=== PATIENT | female | born 1965 | race American Indian/Alaskan Native ===

== ENCOUNTER 2019-02-14 08:24 | Outpatient (CLI) | payer BC ==
--- NOTE | 2019-02-14 15:14 | Mammography Report ---
BILATERAL DIGITAL SCREENING MAMMOGRAM with CAD: 02/14/19 08:24:00 CLINICAL: Routine screening. COMPARISON:05/02/11 FINDINGS: The breasts are heterogeneously dense, which may obscure small masses. No mass, architectural distortion or suspicious calcifications. The previously described enlarged right axillary lymph node has resolved. An irregular right axillary skin lesion has also either resolved or is not included on this mammogram. IMPRESSION: No mammographic evidence of malignancy. BI-RADS CATEGORY: 1 - - Negative RECOMMENDATION: Routine mammographic screening in one year. COMMENT: Patient follow-up letters are generated by our [email or web address] application.
== END 2019-02-14 08:25 | disposition home or self-care (01) ==
LOC: SPVWC 08:24
PROVIDERS: ATTEND Nurse Practitioner Family
DX: Z12.31 Encounter for screening mammogram for malignant neoplasm of breast (principal)
CPT/HCPCS: 77067

== ENCOUNTER 2021-05-25 09:06 | Outpatient (CLI) | payer BC ==
--- NOTE | 2021-05-25 13:09 | Mammography Report ---
DIGITAL SCREENING MAMMOGRAM WITH CAD, 05/25/2021 CLINICAL INFORMATION / INDICATION: Routine screening mammography. SCREENING MAMMO TECHNIQUE: Digital bilateral 2D mammography was obtained in the craniocaudal and mediolateral obliqu e projections. This examination was interpreted with the benefit of Computer-Aided Detection analysis . COMPARISON: 02/14/19. FINDINGS: Breast Density: There are scattered areas of fibroglandular density. No dominant mass, suspicious calcifications, or architectural distortion in either breast. IMPRESSION: No mammographic evidence of malignancy. Follow up recommendation: Routine yearly BI-RADS Category 1: Negative. A "normal" or negative report should not discourage follow up or biopsy of a clinically significant f inding. A written summary of these findings will be mailed to the patient. The patient will be entered into a mammography reporting system which will generate a reminder letter for the patient's next appointmen t at the appropriate interval. The [employer] recommends yearly mammograms starting at age 40 and continuing as l mati as a woman is in good health. Breast MRI is recommended for women with an approximate 20-25% or greater lifetime risk of breast cancer, including women with a strong family history of breast or ova christiano cancer or who have been treated for Hodgkin's disease. Signer Name: David Jauregui MD Signed: 05/25/2021 1:04 PM Workstation Name: [id number]
== END 2021-05-25 09:07 | disposition home or self-care (01) ==
LOC: SPVWC 09:06
PROVIDERS: ATTEND Nurse Practitioner Family
DX: Z12.31 Encounter for screening mammogram for malignant neoplasm of breast (principal)
CPT/HCPCS: 77067

== ENCOUNTER 2022-06-27 12:11 | Outpatient (CLI) | payer BC ==
[2022-06-27 13:28] LABS: Calcium 9.2 mg/dL (8.4-10.2)
[2022-06-27 13:30] LABS: Hemoglobin 13.6 gm/dl (10.1-14.3); Mean Corpuscular HGB Conc 35 % (30-34); Mean Corpuscular Volume 96 fl (79-97); Platelet Count 227 K/mm3 (140-440); Red Blood Count 4.08 M/mm3 (3.65-5.03); Red Cell Distribution Width 14.9 % (13.2-15.2)
[2022-06-27 13:39] LABS: Mucus,Urine FEW /HPF
[2022-06-27 13:42] LABS: Color,Urine Straw (Yellow)
[2022-06-27 13:43] LABS: Bilirubin,Urine Negative (Negative); Blood,Urine Negative (Negative); Protein,Urine <15 mg/dL mg/dL (Negative); RBC,Urine < 1.0 /HPF (0.0-6.0); Urobilinogen,Urine < 2.0 mg/dL (<2.0)
== END 2022-06-27 12:12 | disposition home or self-care (01) ==
LOC: LAB 12:11
PROVIDERS: ATTEND Internal Medicine
DX: N17.9 Acute kidney failure, unspecified (principal)
CPT/HCPCS: 36415; 80048; 81001; 82565; 83735; 84100; 85027; 86021; 86038; 86160

== ENCOUNTER 2022-06-30 11:29 | Outpatient (CLI) | payer BC ==
[2022-06-30 13:14] LABS: Albumin 3.7 g/dL (3.9-5); Calcium 9.3 mg/dL (8.4-10.2)
[2022-06-30 13:33] LABS: Hematocrit 41.5 % (30.3-42.9); Hemoglobin 13.8 gm/dl (10.1-14.3); Mean Corpuscular HGB Conc 33 % (30-34); Mean Corpuscular Volume 97 fl (79-97); Platelet Count 236 K/mm3 (140-440); Red Blood Count 4.27 M/mm3 (3.65-5.03); Red Cell Distribution Width 14.2 % (13.2-15.2)
[2022-07-01 15:58] LABS: Creatinine,Urine 58.4 mg/dL (0.1-20.0)
[2022-07-01 16:00] LABS: Creatinine 24 Hour,Urine 0.9 (0.8-2.8)
== END 2022-06-30 11:30 | disposition home or self-care (01) ==
LOC: LAB 11:29
PROVIDERS: ATTEND Internal Medicine
DX: R94.4 Abnormal results of kidney function studies (principal); B20 Human immunodeficiency virus [HIV] disease; I10 Essential (primary) hypertension; E87.6 Hypokalemia
CPT/HCPCS: 36415; 80053; 82570; 83520; 85027; 86038; 86160; 86706; 87517; 89050